=== PATIENT | male | born 1940 | race Caucasian/White ===

== ENCOUNTER 2020-04-07 16:15 | Inpatient (IN) | payer MEDICARE, SELFPAY ==
[2020-04-07] VITALS (24 sets, daily range): BP systolic 95–175; BP diastolic 57–112; PULSE 90–141; RESP 14–212; TEMP 35.7–37.8; O2SAT 88–100; BMI 23.0; BMI 21.7
[2020-04-07] MEDS: LORazepam 2 MG/ML Syringe IV (16:27)
[2020-04-07] MEDS: Rocuronium Bromide 50 MG/5 ML Vial 100 MG IV (16:28)
[2020-04-07] MEDS: Etomidate 20 MG/10 ML Vial IV (16:28)
--- NOTE | 2020-04-07 16:36 | EKG12_ITS ---
Test Reason : POST ARREST Blood Pressure : / mmHG Vent. Rate : 091 BPM Atrial Rate : 044 BPM P-R Int : 000 ms QRS Dur : 150 ms QT Int : 420 ms P-R-T Axes : 000 128 135 degrees QTc Int : 516 ms Atrial fibrillation with premature ventricular or aberrantly conducted complexes Right bundle branch block Left posterior fascicular block Bifascicular block T wave abnormality, consider inferior ischemia Abnormal ECG Confirmed by SANGEETA DOWD, LEO ([id number]), map editor YUNI GLASER ([id number]) on 04/13/2020 6:19:48 AM Referred By: MICKY Confirmed By:LEO RUTHERFORD MD
--- NOTE | 2020-04-07 16:38 | CT_ITS ---
STUDY: CT BRAIN WITHOUT CONTRAST REASON FOR EXAM: Male, 79 years old. ALTERED MENTAL STATUS -- CARDIAC ARREST RADIATION DOSAGE (If Supplied By Facility): CTDIvol = ( 60.81 ) mGy, DLP = ( 1067.08 ) mGycm TECHNIQUE: Transaxial CT imaging of the brain was performed without administration of intravenous contrast material. Individualized dose optimization techniques were used for this CT. COMPARISON: No relevant priors. FINDINGS: Normal soft tissue structures. Normal calvarium. Postsurgical changes of the orbits. Mild atrophy and moderate periventricular white matter ischemic changes.. Normal basal ganglia. Probable old lacunar infarct in the right thalamus.. Normal brainstem. Normal cerebellum. There is no intracranial hemorrhage. There are no findings of an acute ischemic infarction. Small mucous retention cyst in left maxillary sinus.. CT/Brain/Head without Contrast IMPRESSION: Mild atrophy and moderate periventricular white matter ischemic changes. Probable old lacunar infarct in right thalamus. No evidence for acute bleed. If concern for acute infarct MRI recommended. Electronically Signed: Lyndon Carrera MD at 17:37 EST , Service support ,
--- NOTE | 2020-04-07 16:39 | ED.VIS.GEN ---
History of Present Illness Chief Complaint: CPR Informant: Family, Sr. Payroll Manager Narrative: Patient was not feeling well for a couple minutes while picking up branched from his yard and had a witnessed collapsed by , who started poor-quality CPR (I don't know CPR, but I started pushing on his chest - something is better than nothing). Paramedics arrived and took over ACLS from who was performing CPR, they detected that he was in ventricular fibrillation, they shocked him several times, eventually went to ventricular tachycardia that they shocked, and eventually went into a rhythm that may have been PEA, they were doing CPR and placed an I-gel airway, and eventually they detected spontaneous return of circulation with a pulse. They gave several doses of epinephrine, amiodarone 300 mg IO, and an amp of sodium bicarbonate. I did all of this through an intraosseous line placed in the left proximal tibia and after a failed one in the left proximal humerus. denies recent illness or hx of Covid. Further history from family includes that he has COPD, would not use a nebulizer machine even if he was short of breath, and his doctor wanted him to be on a constant supply of oxygen via nasal cannula and he refused. He often appeared to be dyspneic, but not necessarily more than usual today before this event occurred. - Past Medical History (1) CAD (coronary artery disease) Status: Chronic (2) Dyslipidemia Status: Chronic (3) HTN (hypertension) Status: Chronic (4) Hypothyroidism Status: Chronic (5) Psoriasis Status: Chronic (6) COPD (chronic obstructive pulmonary disease) Status: Chronic Past Medical History - Allergies and Home Meds Allergies/Adverse Reactions: Allergies isosorbide mononitrate [From Imdur] Allergy (Verified 04/07/20 16:23) Rash nizatidine [From Axid] Allergy (Verified 04/07/20 16:23) Rash simvastatin [From Zocor] Allergy (Verified 04/07/20 16:23) Rash Primary Care Physician: NOT,DEFINED [NON-STAFF] - Surgical History: coronary bypass surgery Smoking Status: Unknown if ever smoked - Family History Maternal Family History: Reports: No pertinent history Paternal Family History: Reports: No pertinent history Offspring Family History: Reports: Clotting Disorder - factor V - daughter Review of Systems ROS: Unable to Obtain Physical Exam Vital Signs/Narrative: Vital Signs Temp Pulse Resp BP Pulse Ox 01/14/21 16:16 96.8 F L 96 212 H 97/60 88 Inital Vital Signs reviewed: Yes General: Well nourished, Well developed, - - obtunded Head: Normocephalic, Atraumatic Eyes: Perrl - 2mm ENT: Moist mucous membranes, No rhinorrhea Neck: Supple Cardiovascular: Regular rate, Regular rhythm - w/ occ irregularity Respiratory: - - agonal spont breathing present, assisted by bag on I-gel Abdomen: Soft, Nondistended Extremities: No edema, - - cold and pale below knees bilat. flaccid x 4 Skin: Pallor - and mottling throughout trunk Neurological: Coma - GCS 3t Diagnostic/Tx/Re-eval Chest X-Ray - ED: 1 View, Read by ED Physician, Right Infiltrate, - - good ETT and OGT placement Impressions Brain CT 04/07/20 16:38 IMPRESSION: Mild atrophy and moderate periventricular white matter ischemic changes. Probable old lacunar infarct in right thalamus. No evidence for acute bleed. If concern for acute infarct MRI recommended. Electronically Signed: Lyndon Carrera MD at 17:37 EST , Service support , Chest X-Ray 04/07/20 16:52 IMPRESSION: Subtle opacifications in the right mid and lower lung field I suspect are pulmonary contusions from chest compressions. Patient shows multiple minimally displaced bilateral rib fractures. There is a small right apical pneumothorax without mediastinal shift and subcutaneous emphysema noted in the right chest. Support lines and tubes as described, no demonstrated complications Electronically Signed: Deep Acevedo MD at 17:35 EST , Service support , 04/07/20 16:36 Chest 1 View (Portable) [RAD] Stat 04/07/20 16:38 CT Brain [Brain/Head without Contrast] [CT] Stat 04/07/20 17:00 Mucosa - Nose SARS-CoV-2 Antigen (Rapid) - Final Laboratory Results 04/07/20 04/07/20 04/07/20 16:20 16:20 16:20 WBC 7.1 RBC 4.70 Hgb 15.1 Hct 46.9 MCV 99.8 H MCH 32.1 H MCHC 32.2 RDW Std Deviation 44.1 H RDW Coeff of Brock 11.9 Plt Count 113 L MPV 11.7 Immature Gran % (Auto) 4.200 H Neut % (Auto) 15.4 L Lymph % (Auto) 74.3 H Story % (Auto) 2.8 Eos % (Auto) 2.3 Baso % (Auto) 1.0 Absolute Neuts (auto) 1.1 L Absolute Lymphs (auto) 5.25 H Nucleated RBC % 0.4 Differential Comment SCANNED PT 14.7 INR 1.2 APTT 39.7 H Sodium 141 Potassium 3.9 Chloride 106 Carbon Dioxide 20.0 L Anion Gap 15 BUN 21 H Creatinine 1.70 H Estim Creat Clear Calc 37.75 Est GFR (MDRD) Af Amer 50 L Est GFR (MDRD) Non-Af 41 L BUN/Creatinine Ratio 12.4 Glucose 279 H Lactic Acid Calcium 8.4 L Total Bilirubin 0.40 AST 342 H ALT 398 H Alkaline Phosphatase 118 H Troponin I 0.041 Total Protein 5.8 L Albumin 2.8 L Globulin 3.0 Albumin/Globulin Ratio 0.9 04/07/20 16:20 WBC RBC Hgb Hct MCV MCH MCHC RDW Std Deviation RDW Coeff of Brock Plt Count MPV Immature Gran % (Auto) Neut % (Auto) Lymph % (Auto) Story % (Auto) Eos % (Auto) Baso % (Auto) Absolute Neuts (auto) Absolute Lymphs (auto) Nucleated RBC % Differential Comment PT INR APTT Sodium Potassium Chloride Carbon Dioxide Anion Gap BUN Creatinine Estim Creat Clear Calc Est GFR (MDRD) Af Amer Est GFR (MDRD) Non-Af BUN/Creatinine Ratio Glucose Lactic Acid 10.5 H* Calcium Total Bilirubin AST ALT Alkaline Phosphatase Troponin I Total Protein Albumin Globulin Albumin/Globulin Ratio - Rhythm Strip Rhythm Strip: A. fib, at times sinus Rate: 110 Ectopy: PVC(s), PAC(s) - EKG Initial EKG Interpretation: No Acute Injury Pattern, Atrial Fibrillation, RBBB, - - Frequent ectopy. Prior: Changed - Medical Decision Making Upon initial evaluation, patient had a thready pulse but did register a blood pressure around 100 systolic, we managed him by supporting his breathing as he was breathing spontaneously, obtained IV access in both upper extremities, subsequently removing the intraosseous line from his left tibia. He started having intermittent seizure activity with his head and upper extremities, some of the activity his eyes were twitching to the left and with some of it he was twitching to the right. He was given Ativan 2 mg, and since we were partially sedating him he was breathing spontaneously, RSI was completed by giving him etomidate and rocuronium. We switched his I-gel out for a 7.5 ETT see the procedure note. This was confirmed by chest x-ray, 21 cm at the lip. He was placed on the ventilator. His rhythm did not change, but upon checking for a pulse again, it was absent and I started CPR immediately, followed by a round of ACLS with epi 1 mg. At the 2-minute pulse check, he had a strong pulse and maintained blood pressure around 110-120 with strong MAP's throughout the rest of his stay in the emergency department. He was at this time that we were told family was here and they remembered that the patient desired to be a DNR. I then had a long discussion with several family members including . Everyone agreed that we would not withdrawal the breathing tube now, but he would have no escalation of care or invasive lines or pressors. We discussed all of this along with the charge nurse being present. They did not have a previously signed DNR, so we wrote 1 up which they signed, DNR Comfort Care arrest, if he arrests again they agree for us to keep him comfortable. Given the seizure activity and sudden collapse I did send him for CT of the brain, shows no acute hemorrhage. Other than the high lactic acid and slightly elevated liver enzymes which may be early shock liver, the rest of his lab work really was unremarkable for an 79-year-old, consistent with sudden dysrhythmia like ventricular fibrillation causing his sudden collapse. Intermittently on the monitor, the patient electrically had activity around 110 bpm, and he would have a pulse half of this, indicating he was capturing every other beat mechanically. He would then change and suddenly have his pulse increased to the same as what is on the monitor at 110. I discussed all of this with cardiology Dr. Quevedo, intensive care Dr. Mendez, and hospitalist Dr. Mcgee, everyone is in agreement with continuing the amiodarone drip that we started since he received 300 mg per EMS, IV fluids, and supportive critical care in the ICU to see if he wakes up. Note, we do not have a hypothermic protocol available at this hospital. - Critical Care Time Critical care time (excluding procedures): 30-74 minutes - 50 min, excluding procedures, Including time spent:, Discussing w/Patient &/or Family/Road Tester, Discussing w/Consultants, Arranging Admission or Transfer, Performing Direct Patient Care at Bedside Procedures Procedure(s): Rapid sequence intubation-after administering Ativan 2 mg for seizure activity followed by etomidate 20 mg and rocuronium 100 mg, patient had been preoxygenated bagging through the EMS airway, it was removed, small amount of nonbloody mucus was suctioned from the posterior oropharynx, and using glide scope a 7.5 Italian ETT was seen passing through the cords, secured at 21 cm at the lip, equal breath sounds were heard bilaterally, no breath sounds were heard under the epigastrium, and there was good color change on the CO2 cap. Placement confirmed by chest x-ray. No complications. CPR by ED physician-upon palpating his pulse and feeling none, seen in PEA on the monitor, I started CPR immediately, this was performed for about 60 seconds and taken over by residential pest control technician. I continued running ACLS. See above. ED Disposition - Plan for ED Patient: Disposition: Acute Care Hospital [facility] Diagnosis: Cardiac arrest with ventricular fibrillation, Cardiopulmonary arrest with successful resuscitation, Anoxic seizures
[2020-04-07] MEDS: 0.9% Normal Saline 1,000 ML 1000 ML IV ×2 (16:48→17:42)
--- NOTE | 2020-04-07 16:49 | ED.RN ---
1627 ativan 2mg administered 1628 etomidat 20mg administered 1628 roccunium 100mg administered 1630 pt intubated 7.5 et 21 at the lip 1633 coded. cpr initated. 1634 1mg epi administered. 1635 pulse check. pulse palpable. 1637 og placed 1638 pickard catheter placed.
[2020-04-07 16:50] LABS: Absolute Lymphocyte Count 5.25 X10^3/uL (0.83-4.51); Absolute Neutrophil Count 1.1 X10^3/uL (2.0-7.7); Basophil# 0.07 X10^3/uL; Eosinophil# 0.16 X10^3/uL; Eosinophils% 2.3 % (0-5); Hematocrit 46.9 % (40-54); Hemoglobin 15.1 g/dL (13.0-16.5); International Normalized Ratio 1.2; Lymphocyte # 5.25 X10^3/ul (4.0); Lymphocyte % 74.3 % (19-41); Mean Corp Hgb Conc 32.2 g/dL (32-36); Mean Corpuscular Hgb 32.1 pg (27.0-32.0); Mean Corpuscular Volume 99.8 fL (80-94); Mean Platelet Vol. 11.7 fl (6.2-12.0); Monocyte% 2.8 % (0-10); NRBC Flagged by Analyzer 0.4 % (0-5); Neutrophil # 1.09 X10^3/uL (2.7-7.7); Neutrophil % 15.4 % (47-70); POSITIVE DIFFERENTIAL YES; POSITIVE MORPHOLOGY YES; Platelet Count 113 K/mm3 (150-450); Prothrombin Time (Protime)PT. 14.7 SECONDS (11.7-14.9); RBC Distribution Width CV 11.9 % (11.6-14.6); RBC Distribution Width SD 44.1 fl (35.1-43.9); White Blood Count 7.1 K/mm3 (4.4-11.0)
[2020-04-07 16:51] LABS: Partial Thromboplast Time 39.7 Seconds (24.1-36.2)
--- NOTE | 2020-04-07 16:52 | RAD_ITS ---
STUDY: X-RAY CHEST REASON FOR EXAM: Male, 79 years old. Acute chest pain, cardiac arrest TECHNIQUE: 2 AP portable views COMPARISON: 2015 FINDINGS: EKG leads overlie the chest. Tip of the ET tube is 4 cm above the lucy, NG tube tip in the body the stomach. Percutaneous pacemaker/defibrillator over the upper sternum Lungs are expanded. There are subtle opacifications in the right mid and lower lung field, I suspect these are pulmonary contusions as the patient shows multiple minimally displaced right rib fractures and a small right apical pneumothorax. There are also minimally displaced left rib fractures but I do not see evidence of left pneumothorax. There is a small amount of subcutaneous emphysema along the right chest wall. Sternal cerclage wires and vascular clips are present from a prior sternotomy and coronary artery bypass graft procedure (CABG). Normal mediastinum and nilesh. Normal visualized pulmonary arteries. Normal visualized aortic arch and descending thoracic aorta. There are diffuse degenerative changes of the visualized thoracic spine. There is no demonstrated abnormality of the visualized soft tissue structures of the upper abdomen. RAD/Chest 1 View (Portable) IMPRESSION: Subtle opacifications in the right mid and lower lung field I suspect are pulmonary contusions from chest compressions. Patient shows multiple minimally displaced bilateral rib fractures. There is a small right apical pneumothorax without mediastinal shift and subcutaneous emphysema noted in the right chest. Support lines and tubes as described, no demonstrated complications Electronically Signed: Deep Acevedo MD at 17:35 EST , Service support ,
[2020-04-07 16:59] LABS: Differential Indicated SCAN CRITERIA MET
[2020-04-07 17:00] LABS: ALB/GLOB Ratio 0.9 RATIO (0.9-2.4); AST(SGOT) 342 U/L (15-37); Alanine Aminotransfer ALT/SGPT 398 U/L (16-61); Albumin, Serum 2.8 g/dL (3.2-5.0); Alkaline Phosphatase 118 U/L (45-117); Anion Gap 15 (5-15); BUN 21 mg/dL (7-18); BUN/Creat Ratio 12.4 RATIO (10-20); Calcium,Total 8.4 mg/dL (8.5-10.1); Chloride 106 mmol/L (98-107); EST Glomerular Filtration Rate 41 mL/min (>60); Est Glom Filt Rate - Afr Amer 50 mL/min (>60); Estimated Creatinine Clearance 37.75 ml/min; Glucose 279 mg/dL (74-106); Potassium 3.9 mmol/L (3.5-5.1); Protein, Total 5.8 g/dL (6.4-8.2); Sodium Level 141 mmol/L (136-145)
[2020-04-07 17:14] LABS: Lactic Acid 10.5 mmol/L (0.4-1.9)
--- NOTE | 2020-04-07 17:15 | CM.ED ---
SOCIAL WORK Reason for Consult: Code Blue Responded to Danae Obrien. Patient's and daughter were in waiting room. Emotional support provided. Daughter reports patient does have a DNR and wants to respect patient's wishes. This worker remained with family while Dr. Hodges discussed plan of care. and daughter were escorted by this worker and Napier Ray to patient's room. Plan: Admit to ICU Lexy Marrufo MSW, HEARING AID MECHANIC
[2020-04-07 17:22] LABS: Differential Comment SCANNED
--- NOTE | 2020-04-07 17:34 | NURSING ---
ICU 3 WHITE VFIB CARDIAC ARREST W [facility]
[2020-04-07] MEDS: Amiodarone 360 MG in Dextrose 5% Viaflo Bag 192.8 ML 33.3 MG CONT INF (17:39)
[2020-04-07] MEDS: 0.9% Normal Saline 1,000 ML 150 ML IV (17:43)
--- NOTE | 2020-04-07 17:50 | ED.RN ---
attempted to call report to icu. nurse not available.
--- NOTE | 2020-04-07 18:01 | CHAPLAIN ---
Type of Pastoral Visit ___ Initial Visit ___ Follow-up Visit ___ On-call Visit ___ General Patient Visit ___ Spiritual Assessment ___ Family Conference ___ Bereavement ___ Rapid Response _x__ Code Blue ___ Other (describe below) Pastoral Care Referral From ___ Patient ___ Family ___ Nurse ___ Physician ___ Flash Drier Operator ___ Silverware Cleaner _x__ Other (describe below) Sacrament/Intervention _x__ Active listening ___ Anointing ___ Hoahaoism ___ Bereavement ___ Communion ___ Saritha exploration ___ _x__ Life review _x__ Prayer ___ Reconciliation ___ Sacrament of Sick _x__ Supportive presence ___ Wedding ___ Other (describe below) Pastoral Comments responded to Code Blue; SW also available; gave presence to family members who had arrived; accompanied family into room to see patient; was present when more family members came and offered group prayer; offered water and physical support and answering of non medical questions
--- NOTE | 2020-04-07 18:10 | PCM.HP.STD ---
Problem List (1) Cardiac arrest with ventricular fibrillation Status: Acute (2) Cardiopulmonary arrest with successful resuscitation Status: Acute (3) Anoxic seizures Status: Acute (4) Hypothyroidism Status: Chronic Qualifiers: Hypothyroidism type: unspecified Qualified Code(s): E03.9 - Hypothyroidism, unspecified (5) Dyslipidemia Status: Chronic (6) HTN (hypertension) Status: Chronic Qualifiers: Hypertension type: essential hypertension Qualified Code(s): I10 - Essential (primary) hypertension (7) S/P CABG x 4 Status: Chronic (8) Psoriasis Status: Chronic (9) CAD (coronary artery disease) Status: Chronic Qualifiers: Coronary Disease-Associated Artery/Lesion type: unspecified vessel or lesion type [place] vs. transplanted heart: unspecified whether [place] or transplanted heart Associated angina: angina presence unspecified Qualified Code(s): I25.10 - Atherosclerotic heart disease of [place] coronary artery without angina pectoris (10) Tobacco dependence Status: Chronic (11) COPD (chronic obstructive pulmonary disease) Status: Chronic Qualifiers: COPD type: unspecified COPD Qualified Code(s): J44.9 - Chronic obstructive pulmonary disease, unspecified History of Present Illness Date of Admission: 04/07/20 Chief Complaint: Cardiopulmonary arrest with ROSC The patient is an 79 y/o M w/ PMHx: COPD, CAD s/p CABG x 4, Hx Psoriasis, Tobacco use, HTN, HLD, Anxiety and Depression, BPH, Hypothyroidism who presents to the [facility] ED on 04/07/20 with history of a witnessed collapse by a bystander who initiated CPR and called paramedics who once arrived noted patient to be in V. fib with several shocks administered with eventual transition to ventricular tachycardia which was also then shocked and patient transition to PEA with continued CPR and eventual placement of an in the field airway with eventual spontaneous return of circulation with serial doses of epinephrine as well as amiodarone and bicarb delivered via IO to the left proximal tibia. Upon ED transition patient was intubated. In the emergency room prior to intubation patient with what was perceived as seizures suspected anoxic as following intubation stabilized. Patient did have recurrent loss of circulation and required additional CPR with again return of circulation in the ED. Work-up in the ED included T 96.8 temporally, heart rate 141, BP 97/60, respiratory rate 21, initially 88% with Ambu bag--> intubated with repeat vitals heart rate 90, BP 95/57, respiratory rate 16, 100% mechanically ventilated, CBC with WBC 7.1, hemoglobin 15.1, platelet 113 with ANC 1.1 and absolute lymphocytes 5.25, coags with PT 14.7, INR 1.2, PTT 39.7, CMP with carbon oxide 20, BUN/creatinine 21/1.70, glucose 279, lactic acid pending, total bilirubin 0.4, AST/ALT 342/398, alk phos 118, troponin 0.041, rapid Covid antigen negative, chest x-ray with subtle opacifications right mid and lower lung ritter likely pulmonary contusions from chest compressions with multiple minimally displaced bilateral rib fractures with a small right apical pneumothoraces without mediastinal shift and subcu emphysema noted the right chest, CT brain with mild atrophy and moderate periventricular white matter ischemic changes with 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 In the ED patient ministered rocuronium, Ativan, etomidate, normal saline boluses as well as sodium bicarb 50 mEq x 1 as well as amiodarone infusion. Past Medical History Past Medical History (Chronic Problems): Chronic Problems COPD (chronic obstructive pulmonary disease) (Chronic) Hypothyroidism (Chronic) Dyslipidemia (Chronic) HTN (hypertension) (Chronic) S/P CABG x 4 (Chronic) Psoriasis (Chronic) CAD (coronary artery disease) (Chronic) Tobacco dependence (Chronic) Allergies isosorbide mononitrate [From Imdur] Allergy (Verified 04/07/20 16:23) Rash nizatidine [From Axid] Allergy (Verified 04/07/20 16:23) Rash simvastatin [From Zocor] Allergy (Verified 04/07/20 16:23) Rash Home Medications: Ambulatory Orders Medication Instructions Recorded Atorvastatin Calcium [Lipitor] 40 mg PO QHS 09/30/14 Citalopram [Celexa] 40 mg PO DAILY 09/30/14 Levothyroxine [Synthroid] 150 mcg PO DAILY 09/30/14 Tamsulosin HCl [Flomax] 0.4 mg PO DAILY 09/24/15 Finasteride 5 mg PO DAILY 04/07/20 hydroCHLOROthiazide 25 mg PO DAILY 04/07/20 [Hydrochlorothiazide] Surgical History: coronary bypass surgery - CABG x4. Psychiatric History: Anxiety, Depression Lives: Spouse/ Significant Other Smoking Status: Current every day smoker - Patient with ongoing 1/2 pack/day cigarette tobacco usage since youth. Tobacco Use: Cigarettes Alcohol: None Drugs: None - *Family History Maternal History Items: Hypertension Paternal History Items: Hypertension Offspring History Items: Clotting Disorder - factor V - daughter Review of Systems Unable to obtain accurate/complete ROS d/t: Unable to obtain ROS given unresponsive, intubated status. VTE Information - Inpt Only VTE Present on Admission: No VTE Mechan Device Prophylaxis: SCD's VTE Pharm Prophylaxis ordered?: Yes Patient Problems: Active and Suspected Problems Cardiac arrest with ventricular fibrillation (Acute) Cardiopulmonary arrest with successful resuscitation (Acute) Anoxic seizures (Acute) Subjective: Patient laying in the ED bed, intubated, recent paralytic at 1600 however ongoing unresponsive status. Objective: Physical Examination: General: Laying in the ED bed, unresponsive, intubated, no active seizure activity noted. Skin: Still some mottling of lower extremities and upper extremities distally, normal turgor, no icterus.. HEENT: AT/NC, EOM unable to be assessed given current presentation, PERRLA, dry MM, no carotid bruits or JVD noted. Lungs: Diminished throughout, greater bases, symmetric rise, no evident distress, mildly coarse, no specific rhonchi or wheezing. Heart: Regular, rate currently less than 100; no gallop, rub audible. Abdomen: soft, no grimace with palpation of the abdomen, ND, decreased BS, no HSM. Extremities: No obvious significant edema, significant bilateral lower extremities and bilateral upper extremity distal mottling. Neurological: Laying in the ED bed, unresponsive, intubated, no active seizure activity; cognitive function not baseline intact; pupils equally reactive to light and accomodation; cranial nerves unable to be assessed given current status, not moving extremities or withdrawing to pain, strength given this presentation severely global decreased, flaccid. Psychiatric: affect appears light, no acute evidence of depressive or anxiety feelings. - Physical Exam Vitals/I&O's: Vital Signs Temp Pulse Resp BP Pulse Ox 96.3 F L 115 H 14 125/65 H 96 04/07/20 17:46 04/07/20 17:46 04/07/20 17:46 04/07/20 17:46 04/07/20 17:46 Oxygen Delivery Method Mechanical Ventilator Weight: 169 lb 12.095 oz Body Mass Index (BMI) 23.0 Intake and Output for Last 24 Hours 04/05/20 04/06/20 04/07/20 23:59 23:59 23:59 Intake Total 900 / 900 Balance 900 / 900 Microbiology Past 72 Hours 04/07/20 17:00 Mucosa - Nose SARS-CoV-2 Antigen (Rapid) - Final Laboratory Results 04/07/20 16:20: WBC 7.1, RBC 4.70, Hgb 15.1, Hct 46.9, MCV 99.8 H, MCH 32.1 H, MCHC 32.2, RDW Std Deviation 44.1 H, RDW Coeff of Brock 11.9, Plt Count 113 L, MPV 11.7, Immature Gran % (Auto) 4.200 H, Neut % (Auto) 15.4 L, Lymph % (Auto) 74.3 H, [place] % (Auto) 2.8, Eos % (Auto) 2.3, Baso % (Auto) 1.0, Absolute Neuts (auto) 1.1 L, Absolute Lymphs (auto) 5.25 H, Nucleated RBC % 0.4, Differential Comment SCANNED 04/07/20 16:20: Sodium 141, Potassium 3.9, Chloride 106, Carbon Dioxide 20.0 L, Anion Gap 15, BUN 21 H, Creatinine 1.70 H, Estim Creat Clear Calc 37.75, Est GFR (MDRD) Af Amer 50 L, Est GFR (MDRD) Non-Af 41 L, BUN/Creatinine Ratio 12.4, Glucose 279 H, Calcium 8.4 L, Total Bilirubin 0.40, AST 342 H, ALT 398 H, Alkaline Phosphatase 118 H, Troponin I 0.041, Total Protein 5.8 L, Albumin 2.8 L, Globulin 3.0, Albumin/Globulin Ratio 0.9 04/07/20 16:20: PT 14.7, INR 1.2, APTT 39.7 H 04/07/20 16:20: Lactic Acid 10.5 H* Current Medications Sodium Chloride () 1,000 mls @ 1,000 mls/hr IV .Q1H SVETLANA Stop: 04/07/20 18:39 Last Admin: 04/07/20 17:42 Dose: 1,000 mls/hr Documented by: Sodium Chloride () 1,000 mls @ 150 mls/hr IV .Q6H40M [facility] Last Admin: 04/07/20 17:43 Dose: 150 mls/hr Documented by: Amiodarone HCl 360 mg/ (Dextrose) 200 mls @ 33.333 mls/hr CONT INF .Q6H [facility] Stop: 04/07/20 22:59 Last Admin: 04/07/20 17:39 Dose: 1 mg/min, 33.3 mls/hr Documented by: Assessment/Plan All Active Problems Cardiac arrest with ventricular fibrillation (Acute) Cardiopulmonary arrest with successful resuscitation (Acute) Anoxic seizures (Acute) Right nasal mass (Acute) Uncontrolled epistaxis (Acute) The patient is an 79 y/o M w/ PMHx: COPD, CAD s/p CABG x 4, Hx Psoriasis, Tobacco use, HTN, HLD, Anxiety and Depression, BPH, Hypothyroidism who presents to the [facility] ED on 04/07/20 with history of a witnessed collapse by a bystander who initiated CPR and called paramedics who once arrived noted patient to be in V. fib with several shocks administered with eventual transition to ventricular tachycardia which was also then shocked and patient transition to PEA with eventual ROSC. 1. Cardiopulmonary Arrest with ROSC: Suspect cardiac arrhythmia with as noted V. fib and ventricular tachycardia prior to PEA in the field, will admit to the ICU, continue intubated status, consult taxicab driver and Cardiology, will initiate sedation with propofol/fentanyl if necessary although in the emergency room patient not responsive but did receive a one-time dose of rocuronium although would have expected it to have dissipated from his system upon current evaluation, will continue amiodarone drip with bolus administered in the ED given outside EMS evaluation upon arrival suspected arrhythmia as etiology, continue serial troponin, AM FLP, obtain ECHO, obtain mag, defer any pressor therapy or central line per discussion with family, no re-intubation or CPR, continue judicious hydration. ASA, lovenox. 2. Seizure activity, suspect anoxic: Prior to intubation patient with seizure activity, subsided following intubation and appropriate airway management, will continue to closely monitor, if necessary may add AEDs but this would portend a poor prognosis. 3. Small right pneumothoraces without any mediastinal shift: Likely secondary to CPR with also noted minimally displaced bilateral rib fractures and likely pulmonary contusions, will obtain repeat chest x-ray this evening especially given intubated status currently and if significantly worsening will necessitate chest tube placement per general surgery with consultation otherwise we will continue to monitor with repeat chest x-ray in a.m. 4. Elevated LFTs: Likely secondary to acute presentation #1 with hypoperfusion, continue treatment as noted #1, trend CMP, if not improving will obtain abdominal/liver ultrasound. 5. Hyperglycemia: Admission glucose 279, possibly stress response given acute presentation, hemoglobin A1c requested, n.p.o. status currently, will maintain on every 6 hours Accu-Cheks with insulin sliding Scale pending this result. 6. Acute kidney injury: Secondary to acute presentation as noted #1, hypoperfusion. Admission BUN/Cr 21/1.70, prior baseline creatinine noted to be 0.9-1.1. Will hydrate, hold nephrotoxic medications and repeat chemistry in AM. If no improvement would plan FeNa assessment. 7. CAD: s/p CABG x 4, will maintain on asa, statin, not on BB or ACEI, Cardiology consulted as noted above. 8. Hypertension: Will hold HCTZ, not on BB or ARB/ACEI despite hx, PRN IV BB and IV Hydralazine given presentation as noted above. 9. Hyperlipidemia: Continue home statin regimen given LFT elevations present but not severe, may discontinue if further rise. AM FLP. 10. Hypothyroidism: Continue home synthroid regimen. 11. BPH: We will continue patient on Flomax and finasteride regimen. 12. Anxiety and depression: We will continue patient home Celexa regimen. 13. Chronic COPD: We will maintain on ATC duonebs, PRN albuterol, HOB. 14. DVT Prophylaxis: SCDs, lovenox. 15. CODE status: Patient LESLIE is his who is present and living will is currently in place. Discussed CODE status at length including difference between FULL code, DNR-CCA and DNR-CC status. Following discussions about the differences in these status, requested that they continue with his wishes which would be DNR CCA, no intubation however with the caveat that given he is already intubated that he not be reintubated and defer any further aggressive interventions including recurrent CPR or reintubation. Family also declines usage of pressor therapy or central line placement. Advanced Care Planning Face to Face Time: 16 minutes. Inpatient E&M: 40772 Init Hosp L3 Procedures: 88381 Advncd Care Plan 30 Min
--- NOTE | 2020-04-07 18:20 | ED.RN ---
report called to icu. family spending few minutes with pt prior to admission
--- NOTE | 2020-04-07 20:00 | RAD_ITS ---
STUDY: X-RAY CHEST REASON FOR EXAM: Male, 79 years old. small pneumothorax on xray from earlier tonight, follow up to make sure it has not worsened TECHNIQUE: AP portable COMPARISON: 04/07/2020 4:57 PM. FINDINGS: The lungs are clear and expanded. There is a small approximately 10% right apical pneumothorax. Postop change status post median sternotomy and CABG. Endotracheal tube noted with tip 4 cm proximal to lucy Normal size heart. Normal mediastinum and nilesh. Normal visualized pulmonary arteries. Normal visualized aortic arch and descending thoracic aorta. Normal visualized thoracic spine. Normal visualized clavicles, and shoulders. Nasogastric tube is seen with tip in proximal gastric fundus There is no demonstrated abnormality of the visualized soft tissue structures of the upper abdomen. No significant change since prior study. RAD/Chest 1 View (Portable) IMPRESSION: Stable appearance of small right apical pneumothorax. Electronically Signed: Lyndon Carrera MD at 20:30 EST , Service support ,
[2020-04-07 20:14] LABS: Magnesium 2.3 mg/dL (1.6-2.6)
[2020-04-07] MEDS: 0.9% Normal Saline 1,000 ML 125 ML IV (20:30)
[2020-04-07 20:36] LABS: Hemoglobin A1c 6.1 % (3.8-5.6)
[2020-04-07 20:43] LABS: Reflex Lactate? Y
[2020-04-07] MEDS: Ipratropium/Albuterol Sulfate 3 ML AMPUL.NEB INHALATION (20:48)
[2020-04-07 21:02] LABS: CPK Total, Creatine Kinase 124 U/L (39-308); Triglycerides 171 mg/dL
[2020-04-07 21:30] LABS: Base Excess -8 mmol/L (-2 to +2); Bicarbonate 20.7 mmol/L (22-26); Blood Gas Specimen Type ART; FI02 50; Mode AC; O2 Delivery Device Adult Vent; PEEP 5; PO2 87 mmHG (75-100); RR 12; SITE L Radial; SO2 94 % (95-99); Total Carbon Dioxide 22 mmol/L; Vt 450; pCO2 55.5 mmHg (35-45); pH 7.18 (7.35-7.45)
[2020-04-07 21:48] LABS: Lactic Acid 5.7 mmol/L (0.4-1.9)
[2020-04-07 21:53] LABS: M R Staph aureus DNA By PCR Negative (Negative); Probe Check PASS; Specimen Processing Control PASS
[2020-04-07] MEDS: Chlorhexidine 15 ML PO (22:11)
[2020-04-07] MEDS: Atorvastatin Calcium 40 MG Tablet PO (22:12)
--- NOTE | 2020-04-07 22:57 | NURSING ---
224: patient having increased ectopy, runs of vtach and SVT. notified that patient is having increased ectopy and offered for her to come see the patient incase he doesn't make it through the night. , Zahra stated that she will be bringing her daughter with her and will be here soon. 230: patient continues to have increased ectopy with runs of vtach and SVT
--- NOTE | 2020-04-07 23:12 | NURSING ---
2305: , Yenifer and daughter, Estephania arrived to the unit. Updated that the patient is having runs of vtach and SVT and explained what those are. Also that the patient is nonresponsive to verbal and physical stimuli with fixed non reactive pupils. stated that she would like to withdraw care and doesn't want to see him in his current state any longer. Dr. Baez notified and stated that he will be up in 5 minutes. family notified. 2315: and daughter states that they would like to stay in the room during extubation. Given comfortable chairs and offered refreshments. both declined refreshments.
[2020-04-07] MEDS: Morphine 2 MG/ML Syringe IV (23:38)
[2020-04-07] MEDS: LORazepam 2 MG/ML Syringe 1 MG IV (23:38)
--- NOTE | 2020-04-07 23:59 | NURSING ---
2335: Dr. Baez on the floor and spoke to patients' and daughter and confirmed that they wish to withdraw care and terminally extubate. New orders received for prn ativan and morphine. 2338: medicated with prn ativan and morphine, explained medications and why they are being given to family 2345: patient terminally extubated by respiratory therapist and placed on 2L NC. Patient respiratory rate in 40's and patient moaning. family notified that ativan and morphine can be given again in 1 hour. They stated understanding and deny any further needs at this time. Both remain present at the bedside.
[2020-04-08] VITALS: BP 98/48; PULSE 94; PULSE 95; RESP 42; TEMP 38.2; O2SAT 89
[2020-04-08] MEDS: Morphine 2 MG/ML Syringe IV ×4 (00:50→03:58)
[2020-04-08] MEDS: LORazepam 2 MG/ML Syringe 1 MG IV (00:50)
[2020-04-08 01:00] VITALS: BP 88/65; PULSE 99; RESP 39; TEMP 38.4; O2SAT 89
[2020-04-08] MEDS: Atropine Sulfate 1% 2 ml Bottle 4 DRP PO (01:56)
[2020-04-08] MEDS: LORazepam 2 MG/ML Syringe IV ×3 (01:56→03:58)
--- NOTE | 2020-04-08 02:55 | CPS ---
Critical ABG results read back to Dr. Baez.
--- NOTE | 2020-04-08 04:28 | EXP.PCM_ITS ---
Preliminary Cause of Dysrhythmia Date of Admission: 04/07/20 Date of : 04/08/20 - Principle Diagnosis Dysrhythmia Problem List: Active and Suspected Problems Cardiac arrest with ventricular fibrillation (Acute) Cardiopulmonary arrest with successful resuscitation (Acute) Anoxic seizures (Acute) Hospital Course Per hpi:The patient is an 79 y/o M w/ PMHx: COPD, CAD s/p CABG x 4, Hx Psoriasis, Tobacco use, HTN, HLD, Anxiety and Depression, BPH, Hypothyroidism who presents to the [facility] ED on 04/07/20 with history of a witnessed collapse by a bystander who initiated CPR and called paramedics who once arrived noted patient to be in V. fib with several shocks administered with eventual transition to ventricular tachycardia which was also then shocked and patient transition to PEA with continued CPR and eventual placement of an in the field airway with eventual spontaneous return of circulation with serial doses of epinephrine as well as amiodarone and bicarb delivered via IO to the left proximal tibia. Upon ED transition patient was intubated. In the emergency room prior to intubation patient with what was perceived as seizures suspected anoxic as following intubation stabilized. Patient did have recurrent loss of circulation and required additional CPR with again return of circulation in the ED. Work-up in the ED included T 96.8 temporally, heart rate 141, BP 97/60, respiratory rate 21, initially 88% with Ambu bag--> intubated with repeat vitals heart rate 90, BP 95/57, respiratory rate 16, 100% mechanically ventilated, CBC with WBC 7.1, hemoglobin 15.1, platelet 113 with ANC 1.1 and absolute lymphocytes 5.25, coags with PT 14.7, INR 1.2, PTT 39.7, CMP with carbon oxide 20, BUN/creatinine 21/1.70, glucose 279, lactic acid pending, total bilirubin 0.4, AST/ALT 342/398, alk phos 118, troponin 0.041, rapid Covid antigen negative, chest x-ray with subtle opacifications right mid and lower lung ritter likely pulmonary contusions from chest compressions with multiple minimally displaced bilateral rib fractures with a small right apical pneumothoraces without mediastinal shift and subcu emphysema noted the right chest, CT brain with mild atrophy and moderate periventricular white matter ischemic changes with 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 In the ED patient ministered rocuronium, Ativan, etomidate, normal saline boluses as well as sodium bicarb 50 mEq x 1 as well as amiodarone infusion. Treatment plan was follows: 1. Cardiopulmonary Arrest with ROSC: Suspect cardiac arrhythmia with as noted V. fib and ventricular tachycardia prior to PEA in the field: admitted to the ICU. Intubated and continued on amiodarone drip. Per discussion with family, patient was not to be re-intubated if necessary. Reportedly patient would not have wanted to have CPR in the first place as patient had discusses his wishes with family in the past and wanted to be a DNR. Family forgot about his wishes and began CPR at home; and other life saving measures were pursued. 2. Seizure activity, suspect anoxic: Prior to intubation patient with seizure activity, subsided following intubation and appropriate airway management. Received ativan at the ED 3. Small right pneumothoraces without any mediastinal shift: Likely secondary to CPR with also noted minimally displaced bilateral rib fractures and likely pulmonary contusions: Repeat CXR was stable 4. Elevated LFTs: Likely secondary to acute presentation #1 with hypoperfusion, continue treatment as noted #1. 5. Hyperglycemia: Admission glucose 279, possibly stress response given acute presentation 6. Acute kidney injury: Secondary to acute presentation as noted #1, hypoperfusion. Admission BUN/Cr 21/1.70, prior baseline creatinine noted to be 0.9-1.1: NSS hydration ordered and given. 7. CAD: s/p CABG x 4 8. Hypertension: HCTZ held secondary to LEON 9. Hyperlipidemia 10. Hypothyroidism 11. BPH 12. Anxiety and depression 13. Chronic COPD: We will maintain on ATC duonebs ordered and given. Elevate head of bed. 14. DVT Prophylaxis: SCDs, lovenox. Later on, patient's family requested that care be withdrawn. Physician was at the bedside and confirmed with family who stated that He withdrawn. Subsequently ETT was removed. All treatment was stopped. As needed morphine IV and as needed Ativan IV as well as atropine drops were prescribed for comfort care. Comfort care regimen was discussed with family and family agreed. On 04/08/2020 at 0406 patient passed. This was confirmed by 2 nurses. Bedside examination was done by physician. Patient with fixed pupils. No corneal reflex. No heart sounds; lung sounds nor bowel sounds no pause. Immediate cause of was dysrhythmia: Hours Underlying cause of : (1) coronary artery disease: Years Other conditions contributing: COPD; HTN Did smoking contribute to : Yes. Patient is a non-smoker. Pandemic did not cause patient . His Covid test was negative and his symptomatology and chest x-ray did not look like Covid. Inpatient E&M: 39784 Disch Hosp
--- NOTE | 2020-04-08 06:10 | NURSING ---
0406: Patient noted to be without radial, femoral, carotid and apical pulse. No respirations noted and no blood pressure noted. Time of verified with Ramona Espino RN. Dr. Baez notified. Family remains at the bedside 0430: Dr. Baez to the floor to assess patient and speak to family 0530: [place] [facility] [place] [facility] request after post mortem care was performed. Patient did not have any belongings present in room. stated she took all of his personal belongings home from the ED.
== END 2020-04-08 04:06 | DRG 303 ==
LOC: ED 16:48 → ICU 18:00
PROVIDERS: Admitting Provider Family Medicine; Emergency Provider Emergency Medicine; Visit Provider Family Medicine
DX: I25.10 Atherosclerotic heart disease of native coronary artery without angina pectoris (principal); J93.83 Other pneumothorax; S22.43XA Multiple fractures of ribs, bilateral, initial encounter for closed fracture; S27.329A Contusion of lung, unspecified, initial encounter; N17.9 Acute kidney failure, unspecified; I47.2 Ventricular tachycardia; I49.01 Ventricular fibrillation; I46.2 Cardiac arrest due to underlying cardiac condition; R56.9 Unspecified convulsions; R94.5 Abnormal results of liver function studies; R73.9 Hyperglycemia, unspecified; Z95.1 Presence of aortocoronary bypass graft; I10 Essential (primary) hypertension; E78.5 Hyperlipidemia, unspecified; E03.9 Hypothyroidism, unspecified; N40.0 Benign prostatic hyperplasia without lower urinary tract symptoms; F32.9 Major depressive disorder, single episode, unspecified; F41.9 Anxiety disorder, unspecified; J44.9 Chronic obstructive pulmonary disease, unspecified; Z87.891 Personal history of nicotine dependence; X58.XXXA Exposure to other specified factors, initial encounter; Y93.89 Activity, other specified; Y92.007 Garden or yard of unspecified non-institutional (private) residence as the place of occurrence of the external cause; Y99.8 Other external cause status; Z79.899 Other long term (current) drug therapy; Z66 Do not resuscitate
CPT/HCPCS: 31500; 31720; 36600; 70450; 71045; 80053; 82550; 82803; 83036; 83605; 83735; 84478; 84484; 85025; 85610; 85730; 87070; 87205; 87426; 87641; 93005; 94002; 94640; 99251; 99285; J7030; G0463